=== PATIENT | male | born 1955 | race Caucasian/White ===

== ENCOUNTER 2017-05-23 23:44 | Emergency (ER) | payer OTHER ==
[~2017-05-23] VITALS: Ht 182.9 cm; Wt 78.2 kg
[2017-05-23] MEDS ORDERED: DOXA1TAB72 PO (23:53)
[2017-05-23] MEDS ORDERED: ATOR1TAB21 PO (23:53)
[2017-05-23] MEDS ORDERED: ASPI81TA85 PO (23:53)
[2017-05-24] MEDS ORDERED: NORCO, ANEXSIA 5/325MG TABLET (HYDROcodone/ACETAMINOPHEN) PO ONE (01:00)
[2017-05-24] MEDS ORDERED: NORCOTAB PO (01:04)
[2017-05-24] MEDS ORDERED: NORCO 5/325MG TABLET (BULK FOR ED) PO ONE (01:15)
[2017-05-24 01:27] VITALS: BP 118/76
--- NOTE | 2017-05-24 08:17 | REP ---
Clinical: Trauma. Fall. Technique: Frontal view of the chest with multiple views of the left hemithorax. Findings: Frontal view of the chest demonstrates chronic appearing interstitial changes and trace bibasilar atelectasis. Oblique views of the left hemithorax demonstrates a nondisplaced anterolateral left seventh rib fracture. No pneumothorax. Impression: Nondisplaced anterolateral left seventh rib fracture. Signed by Marko Aguilar MD 05/24/2017 08:09 A
== END 2017-05-24 01:46 | disposition home or self-care (01) ==
LOC: M ED 23:44
DX: S22.32XA Fracture of one rib, left side, initial encounter for closed fracture (principal); W00.0XXA Fall on same level due to ice and snow, initial encounter; Y92.410 Unspecified street and highway as the place of occurrence of the external cause; Y93.01 Activity, walking, marching and hiking; Y99.9 Unspecified external cause status

== ENCOUNTER → 2020-10-09 | Outpatient (CLI) | payer MEDICARE, OTHER ==
[~2020-10-09] MED LIST: ASPI81TA86 PO; ATOR1TAB21 PO; DOXA1TAB67 PO; HYDR-3715 PO
--- NOTE | 2020-10-09 14:34 | REP ---
INDICATION: ANTERIOR CHEST PAIN FROM FALL. COMPARISON: Rib series 05/24/2017.. TECHNIQUE: PA and lateral chest. FINDINGS: Cardiovascular silhouette is within normal within normal limits. The lungs are clear. Mediastinum and bony thorax are unremarkable. IMPRESSION: No definite acute findings. Questionable old rib fractures on the left. A nondisplaced left 7th rib fracture was documented on the comparison study 05/24/2017. If clinical suspicion persists, dedicated rib films may be informative. <Electronically signed by Hany Avilez > 10/09/20 [id number]
--- NOTE | 2020-10-09 19:06 | REP ---
INDICATION: ANTERIOR CHEST PAIN FROM FALL. COMPARISON: None. TECHNIQUE: There are four views. FINDINGS: There is a nondisplaced fracture of the anterior tip of the right 7th rib. IMPRESSION: Right 7th rib fracture as described. <Electronically signed by Rashel Merritt > 10/09/20 [id number]
== END ==
LOC: M WUC 13:33
PROVIDERS: ATTEND Family Medicine
DX: R07.89 Other chest pain (principal); S22.31XS Fracture of one rib, right side, sequela

== ENCOUNTER → 2021-12-24 | Outpatient (CLI) | payer MEDICARE | LOC: M WUC 13:30 | PROVIDERS: ATTEND Family Medicine | DX: M25.552 Pain in left hip (principal); M85.852 Other specified disorders of bone density and structure, left thigh ==

== ENCOUNTER → 2022-02-26 | Outpatient (CLI) | payer MEDICARE ==
[~2022-02-26] MED LIST changes: +ISOVUE-300 61% 50ML VIAL As Ordered ONE; +LIDOCAINE 1% MDV 20ML VIAL As Ordered ONE; +TRIAMCINOLONE ACETONIDE SUSP 40 MG/ML VIAL (J3301) As Ordered ONE
== END ==
LOC: M RADPRO 09:57
PROVIDERS: ATTEND Orthopaedic Surgery
DX: M16.12 Unilateral primary osteoarthritis, left hip (principal)
CPT/HCPCS: 20610; 76000; J3301; Q9967

== ENCOUNTER → 2022-05-12 | Outpatient (CLI) | payer MEDICARE ==
[~2022-05-12] MED LIST changes: -ISOVUE-300 61% 50ML VIAL As Ordered ONE; +ISOVUE-300 61% 50ML VIAL ONE; -LIDOCAINE 1% MDV 20ML VIAL As Ordered ONE; +LIDOCAINE 1% MDV 20ML VIAL ONE; -TRIAMCINOLONE ACETONIDE SUSP 40 MG/ML VIAL (J3301) As Ordered ONE; +TRIAMCINOLONE ACETONIDE SUSP 40 MG/ML VIAL (J3301) ONE
== END ==
LOC: M PLAIMG 12:22
PROVIDERS: ATTEND Orthopaedic Surgery
DX: M16.12 Unilateral primary osteoarthritis, left hip (principal)
CPT/HCPCS: 76000; J3301; Q9967

== ENCOUNTER → 2022-11-19 | Outpatient (CLI) | payer MEDICARE ==
[~2022-11-19] MED LIST changes: -ISOVUE-300 61% 50ML VIAL ONE; -LIDOCAINE 1% MDV 20ML VIAL ONE; -TRIAMCINOLONE ACETONIDE SUSP 40 MG/ML VIAL (J3301) ONE
== END ==
LOC: M PLAIMG 13:48
PROVIDERS: ATTEND Orthopaedic Surgery
DX: M16.12 Unilateral primary osteoarthritis, left hip (principal)

== ENCOUNTER → 2023-05-17 | Outpatient (CLI) | payer MEDICARE ==
[~2023-05-17] MED LIST changes: +DOXA1TAB40 PO; +ISOVUE-300 61% 100ML VIAL As Ordered ONE; +LIDOCAINE 1% MDV 20ML VIAL As Ordered ONE; +TRIAMCINOLONE ACETONIDE SUSP 40MG/ML 1ML VIAL As Ordered ONE
== END ==
LOC: M RAD 14:39
PROVIDERS: ATTEND Orthopaedic Surgery
DX: M16.12 Unilateral primary osteoarthritis, left hip (principal)
CPT/HCPCS: 20610; 77002; J3301; Q9967

== ENCOUNTER 2023-11-30 21:29 | Emergency (ER) | payer MEDICARE ==
[~2023-11-30] VITALS: Ht 182.9 cm; Wt 73.0 kg
[~2023-11-30 21:29] MED LIST changes: -ISOVUE-300 61% 100ML VIAL As Ordered ONE; -LIDOCAINE 1% MDV 20ML VIAL As Ordered ONE; -TRIAMCINOLONE ACETONIDE SUSP 40MG/ML 1ML VIAL As Ordered ONE
[2023-11-30] MEDS: traMADol 50 MG TAB PO ONE (23:20)
[2023-11-30] MEDS: ACETAMINOPHEN TAB 650MG DOSE (2X325MG) PO ONE (23:21)
[2023-12-01] MEDS ORDERED: GABA-282 PO (00:29)
[2023-12-01 00:37] VITALS: BP 136/78; TEMP 98.8; O2SAT 20
[2023-12-01] MEDS: KETOROLAC 30 MG/ML 1ML VIAL IM ONE (00:37)
== END 2023-12-01 00:50 | disposition home or self-care (01) ==
LOC: M ED 21:29
DX: M79.605 Pain in left leg (principal); M16.12 Unilateral primary osteoarthritis, left hip; M54.10 Radiculopathy, site unspecified; Z79.899 Other long term (current) drug therapy
CPT/HCPCS: 73502; 93971; 96372; 99284; J1885

== ENCOUNTER → 2023-12-01 | Outpatient (CLI) | payer MEDICARE ==
[~2023-12-01] MED LIST changes: +GABA-282 PO
[2023-12-01 14:57] LABS: HEMATOCRIT 45.6 % (42.0-52.0); HEMOGLOBIN 15.7 g/dl (13.5-17.5); MEAN CORPUSCULAR HEMOGLOBIN 32.2 pg (27.0-33.0); MEAN CORPUSCULAR HGB CONC 34.4 g/dl (32.0-36.5); MEAN CORPUSCULAR VOLUME 93.4 fl (80.0-96.0); PLATELET COUNT, AUTOMATED 231 10^3/uL (150-450); RED BLOOD COUNT 4.88 10^6/uL (4.30-6.10); WHITE BLOOD COUNT 11.4 10^3/uL (4.0-10.0)
[2023-12-01 15:12] LABS: INR 1.07; PROTHROMBIN TIME 13.6 SECONDS (12.5-14.5)
[2023-12-01 15:18] LABS: ERYTHROCYTE SEDIMENTATION RATE 11 mm/hr (0-20)
[2023-12-01 15:27] LABS: ALBUMIN 4.4 G/DL (3.2-5.2); ALKALINE PHOSPHATASE 66 U/L (46-116); ALT/SGPT 11 U/L (7.0-40); AST/SGOT 14 U/L (<34); BILIRUBIN,TOTAL 0.9 MG/DL (0.3-1.2); BLOOD UREA NITROGEN 19 MG/DL (9-23); CALCIUM LEVEL 9.5 MG/DL (8.3-10.6); CARBON DIOXIDE LEVEL 25 MMOL/L (20-31); CHLORIDE LEVEL 105 MMOL/L (98-107); CREATININE FOR GFR 0.95 MG/DL (0.70-1.30); GLOMERULAR FILTRATION RATE > 60.0 (>42); GLUCOSE, FASTING 99 MG/DL (74-106); POTASSIUM SERUM 4.1 MMOL/L (3.5-5.1); SODIUM LEVEL 138 MMOL/L (136-145); TOTAL PROTEIN 6.9 G/DL (5.7-8.2)
== END ==
LOC: M RAD 13:44
PROVIDERS: ATTEND Orthopaedic Surgery
DX: Z01.818 Encounter for other preprocedural examination (principal); Z79.01 Long term (current) use of anticoagulants